=== PATIENT | male | born 1980 | race American Indian/Alaskan Native ===

== ENCOUNTER 2024-09-04 15:15 | Inpatient (IN) | payer OTHER ==
[~2024-09-04] VITALS: Ht 167.6 cm; Wt 88.5 kg
[2024-09-04] MEDS ORDERED: ZOLPIDEM TARTRATE 5 MG TABLET PO PRN (16:45)
[2024-09-04] MEDS ORDERED: ACETAMINOPHEN 325 MG TABLET PO PRN (16:45)
[2024-09-04] MEDS ORDERED: ONDANSETRON HCL 4 MG/2 ML VIAL IVP PRN (16:45)
[2024-09-04] MEDS ORDERED: OxyCODONE HCL/ACETAMINOPHEN 5-325 MG TABLET PO PRN ×2 (16:45)
[2024-09-04] MEDS ORDERED: MAGNESIUM HYDROXIDE SUSPENSION 30 ML UDCUP PO PRN (16:45)
[2024-09-04] MEDS ORDERED: SODIUM CHLORIDE 0.9% 100 ML ONE (16:54)
[2024-09-04] MEDS ORDERED: IOHEXOL 350 MG/ML 100 ML VIAL ONE (16:54)
[2024-09-04] MEDS ORDERED: 0.9% SODIUM CHLORIDE 10 ML SYRINGE IVP ONE (16:54)
[2024-09-04 16:56] LABS: BASOPHILS % (AUTO) 0.2 % (0.0-2.0); EOSINOPHILS % (AUTO) 2.6 % (1.0-6.0); HEMATOCRIT 29.5 % (41-53); HEMOGLOBIN 9.9 g/dL (13.5-17.5); LYMPHOCYTES # (AUTO) 1.6 K/uL (1.0-4.8); LYMPHOCYTES % (AUTO) 25.5 % (22.0-44.0); MEAN CORPUSCULAR HEMOGLOBIN 29.8 pg (26.0-34.0); MEAN CORPUSCULAR HGB CONC 33.6 G/dL (31.0-37.0); MEAN CORPUSCULAR VOLUME 89 fL (80-100); MONOCYTES # (AUTO) 0.4 K/uL (0.1-1.0); MONOCYTES % (AUTO) 7.1 % (2.0-9.0); NEUTROPHILS # (AUTO) 4.1 K/uL (1.8-7.7); NEUTROPHILS % (AUTO) 64.6 % (40.0-70.0); PLATELET COUNT (AUTO) 675 K/uL (150-450); RED BLOOD CELL COUNT(AUTO) 3.33 MIL/uL (4.50-5.90); RED CELL DISTRIBUTION WIDTH 14.5 % (11.5-14.5); WHITE BLOOD COUNT (AUTO) 6.3 K/uL (4.5-11.0)
[2024-09-04 17:06] LABS: ANION GAP 10 mmol/L (8-16); CALCIUM, TOTAL 8.4 mg/dL (8.8-10.5); CARBON DIOXIDE 26 mmol/L (22-29); CHLORIDE 105 mmol/L (98-107); CREATININE 1.02 mg/dL (0.60-1.30); GLOMERULAR FILTR. RATE CALC > 60 mL/min (>60); GLUCOSE,RANDOM 109 mg/dL (70-110); POTASSIUM 4.2 mmol/L (3.5-5.1); SODIUM SERUM 141 mmol/L (136-145); UREA NITROGEN, BLOOD 13 mg/dL (7-18)
[2024-09-04] MEDS: VANCOMYCIN 1.25 GM/WATER(PEG) 250 ML IV ONE (17:13)
[2024-09-04] MEDS: CLINDAMYCIN 600 MG/D5% WATER 50 ML IV ONE (17:13)
[2024-09-04 17:15] LABS: LACTIC ACID 1.2 mmol/L (0.4-2.0)
[2024-09-04] MEDS: DOCUSATE SODIUM 100 MG CAPSULE PO SCH (20:41)
[2024-09-04 21:25] VITALS: BP 130/74; PULSE 56; RESP 20; TEMP 98; O2SAT 100
[2024-09-04 21:53] LABS: APPEARANCE,URINE CLEAR (CLEAR); BILIRUBIN,URINE NEGATIVE (NEGATIVE); COLOR,URINE LIGHT YELLOW (YELLOW); GLUCOSE, URINE (UA) NEGATIVE (NEGATIVE); KETONES,URINE NEGATIVE (NEGATIVE); LEUKOCYTE ESTERASE ,URINE SMALL (NEGATIVE); NITRATE,URINE NEGATIVE (NEGATIVE); OCCULT BLOOD,URINE NEGATIVE (NEGATIVE); PH,URINE 5.5 (5.0-8.0); PROTEIN,URINE NEGATIVE (NEGATIVE); UROBILINOGEN,URINE <=1.0 mg/dL (<=1.0)
[2024-09-04 21:54] LABS: SPECIFIC GRAVITIY, URINE > 1.030 (1.003-1.030)
[2024-09-04 22:14] LABS: BACTERIA,URINE Few /HPF (None Seen); RBC,URINE 0-2 /HPF (0-2); SQUAMOUS EPITHELIAL CELL,UR Rare /LPF (None Seen); WBC,URINE 0-2 /HPF (0-5)
[2024-09-05] MEDS ORDERED: SODIUM CHLORIDE 0.9% 500 ML IV ONE (01:09)
[2024-09-05] MEDS: HEPARIN SODIUM,PORCINE 5,000 UNITS/ML VIAL SQ SCH (01:29)
[2024-09-05] MEDS: VANCOMYCIN HCL 1 GM/D5% WATER 200 ML IV SCH (01:29)
[2024-09-05 05:15] VITALS: BP 108/64; PULSE 55; RESP 18; TEMP 97.9; O2SAT 97
[2024-09-05 07:18] VITALS: BP 103/52; PULSE 59; RESP 18; TEMP 97.8; O2SAT 98
[2024-09-05] MEDS: FAMOTIDINE 20 MG TABLET PO SCH (08:29)
== END 2024-09-05 18:33 | DRG 605 ==
LOC: EMS 15:15 → EDH 18:32 → 6S 21:15
PROVIDERS: ADMIT Internal Medicine; ATTEND Internal Medicine
DX: S31.105A Unspecified open wound of abdominal wall, periumbilic region without penetration into peritoneal cavity, initial encounter (principal); K57.30 Diverticulosis of large intestine without perforation or abscess without bleeding; K42.9 Umbilical hernia without obstruction or gangrene; K76.0 Fatty (change of) liver, not elsewhere classified; F32.A Depression, unspecified; X58.XXXA Exposure to other specified factors, initial encounter; Y93.89 Activity, other specified; Y92.89 Other specified places as the place of occurrence of the external cause; Y99.8 Other external cause status
CPT/HCPCS: 74177; 80048; 81001; 83605; 85025; 87040; 87070; 87205; 99285; J1644; J3370; J3490; J7040; J7050